=== PATIENT | female | born 1945 | race Caucasian/White ===

== ENCOUNTER 2018-04-16 14:46 | Emergency (ER) | payer MEDICARE ==
[~2018-04-16] VITALS: Ht 157.5 cm; Wt 72.6 kg
--- NOTE | 2018-04-16 15:00 | NUR ---
Patient to ER bed H1 to gown for evaluation. Side rails up.
--- NOTE | 2018-04-16 15:05 | NUR ---
Pt brought by self , A&Ox4, pt presents to ER with R foot pain after a mirror fell on R foot, pedal pulses equal and strong.
[2018-04-16 15:15] VITALS: BP_SYST 151
--- NOTE | 2018-04-16 15:35 | NUR ---
Dr Xie at bedside examining patient
--- NOTE | 2018-04-16 15:50 | NUR ---
Icepack placed on R foot, awaiting for results, pt on stable condition.
--- NOTE | 2018-04-16 17:45 | NUR ---
Patient given written and verbal discharge instructions and verbalizes understanding. ER MD discussed with patient the results and treatment provided. Patient in stable condition. ID arm band removed. No Rx given. Patient educated on pain management and to follow up with PMD. Pain Scale 2/10 tolerable for patient. Opportunity for questions provided and answered. Medication side effect fact sheet provided.
[2018-04-16 17:46] VITALS: BP_SYST 148
== END 2018-04-16 17:46 | disposition home or self-care (01) ==
LOC: SED 14:46
DX: S90.31XA Contusion of right foot, initial encounter (principal); J45.909 Unspecified asthma, uncomplicated; E03.9 Hypothyroidism, unspecified; M19.90 Unspecified osteoarthritis, unspecified site; W20.8XXA Other cause of strike by thrown, projected or falling object, initial encounter; Y93.89 Activity, other specified; Y92.89 Other specified places as the place of occurrence of the external cause; Y99.8 Other external cause status
CPT/HCPCS: 99284